=== PATIENT | male | born 1955 | race Caucasian/White ===

== ENCOUNTER → 2021-09-05 | Day surgery (SDC) | payer MEDICARE, OTHER ==
[~2021-09-05] VITALS: Ht 180.3 cm; Wt 115.0 kg
[~2021-09-05] MED LIST: MIDAZolam 1mg/ml 10ml vial IV ONE; fentaNYL/PF 50MCG/1 ML 2ML syringe IV ONE; normal saline 1000ml 1,000 ML IV SCH
[2021-09-05 11:30] VITALS: BP 108/67
--- NOTE | 2021-09-05 11:46 | NUR ---
Pt is recorded in NSR by EKG. aware, procedure cancelled.
== END | disposition home or self-care (01) ==
LOC: SSTAY O 10:57
PROVIDERS: ATTEND Internal Medicine Interventional Cardiology
DX: I48.91 Unspecified atrial fibrillation (principal); Z53.8 Procedure and treatment not carried out for other reasons
CPT/HCPCS: 93005; A4620; J7030

== ENCOUNTER 2024-07-01 10:02 | Day surgery (SDC) | payer MEDICARE, MEDICAID ==
[2024-06-22 13:14] LABS: BASOPHILS % (AUTO) 0.3 % (0-1); EOSINOPHILS # (AUTO) 0.1 X10'3 (0-0.9); LYMPHOCYTES # (AUTO) 0.7 X10'3 (1.1-4.8); LYMPHOCYTES % (AUTO) 11.6 % (21-51); MEAN CORPUSCULAR HEMOGLOBIN 31.5 PG (27.0-31.0); MEAN CORPUSCULAR HGB CONC 34.3 g/dL (33.0-36.5); MEAN CORPUSCULAR VOLUME 91.7 FL (78-98); MEAN PLATELET VOLUME 7.5 FL (7.4-10.4); MONOCYTES # (AUTO) 0.5 X10'3 (0-0.9); MONOCYTES % (AUTO) 7.7 % (2-12); NEUTROPHILS # (AUTO) 4.6 X10'3 (1.8-7.7); NEUTROPHILS % (AUTO) 78.4 % (42-75); PRE OP HEMATOCRIT 48.6 % (42.0-52.0); PRE OP HEMOGLOBIN 16.7 g/dL (14.0-17.9); PRE OP PLATELET COUNT 166 X10'3 (140-440); PRE OP WHITE BLOOD COUNT 5.9 10'3 (4.8-10.8); RED CELL DISTRIBUTION WIDTH 13.2 % (11.5-14.5)
[2024-06-22 13:27] LABS: ALBUMIN 4.1 G/DL (3.4-5.0); ALBUMIN/GLOBULIN RATIO 1.4 (1.1-1.5); ALKALINE PHOSPHATASE 71 IU/L (46-116); BLOOD UREA NITROGEN 19 MG/DL (7-18); BUN/CREATININE RATIO 17.9 (10.0-20.0); CHLORIDE 102 MMOL/L (99-107); CREATININE 1.06 MG/DL (0.60-1.10); PRE OP ALT 29 U/L (30-65); PRE OP ANION GAP 9 (8-16); PRE OP AST 19 U/L (10-37); PRE OP BILIRUB, TOTAL 0.9 MG/DL (0.0-1.0); PRE OP GLUCOSE 96 MG/DL (70-104); PRE OP SODIUM 139 MMOL/L (135-145); TOTAL CARBON DIOXIDE 28.2 MMOL/L (24-32); eGFR 70 ML/MIN
[~2024-07-01] VITALS: Ht 180.3 cm; Wt 106.3 kg
[2024-07-01] VITALS (10 sets, daily range): BP systolic 112–146; BP diastolic 71–95; PULSE 43–58; RESP 15–18; TEMP 97.4; O2SAT 65–98
[2024-07-01] MEDS: DOCUMENT DATE & TIME OF BETA-BLOCKER PO ONE (06:30)
[~2024-07-01 10:02] MED LIST changes: +APIX5TAB3 PO; +COLC0.6T72 PO; +FEBU40TA6 PO; +LEVO200T8 PO; -MIDAZolam 1mg/ml 10ml vial IV ONE; +SACU1TAB PO; +SOTA80TA PO; +bacitracin 15gm ointment TP ONE; +ceFAZolin 1000mg inj ONE; -fentaNYL/PF 50MCG/1 ML 2ML syringe IV ONE; -normal saline 1000ml 1,000 ML IV SCH
[2024-07-01] MEDS: ringers solution, lacted 1,000 ML IV SCH (11:10)
[2024-07-01] MEDS: famotidine 20mg tablet PO ONE (11:10)
[2024-07-01] MEDS: VANCOMYCIN/WATER FOR INJ (PEG) 1.5GM/300 ML IVPB IV ONE (11:10)
[2024-07-01] MEDS: ceFAZolin 2gm in dextrose, iso 50 ML IV ONE (11:11)
[2024-07-01] MEDS ORDERED: sevoflurane 250ml liquid IH ONE (11:37)
[2024-07-01] MEDS ORDERED: fentaNYL/PF 50MCG/1 ML 2ML syringe ONE (11:45)
[2024-07-01] MEDS ORDERED: midazolam 1 mg/ML 2ml injection ONE (11:46)
[2024-07-01] MEDS ORDERED: ePHEDrine 50MG/ML INJ. ONE (12:06)
[2024-07-01] MEDS ORDERED: propofol inj 20 ML IV ONE (12:07)
[2024-07-01 12:34] LABS: PRE OP PARTIAL THROMB. TIME 24 SECONDS (22-32); PROTHROMBIN TIME 10.7 SECONDS (9.0-12.0)
[2024-07-01] MEDS ORDERED: dexamethasone sod phosphate 4mg/ml inj. ONE (12:52)
[2024-07-01] MEDS ORDERED: acetaminophen 1,000mg/100ml IV 100 ML IV ONE (12:53)
[2024-07-01] MEDS ORDERED: hydrALAZINE 20mg/ml inj. IV PRN (13:10)
[2024-07-01] MEDS ORDERED: ringers solution, lacted 1,000 ML IV SCH (13:10)
[2024-07-01] MEDS ORDERED: ondansetron/PF 4mg/2ml inj IV PRN (13:10)
[2024-07-01] MEDS ORDERED: morphine 4 MG/ML inj SYRINge IV PRN (13:10)
[2024-07-01] MEDS ORDERED: morphine 2 MG/ML inj. syringe IV PRN (13:10)
[2024-07-01] MEDS ORDERED: HYDROmorphone/PF 0.2 MG/ML SYRINGE IV PRN (13:10)
[2024-07-01] MEDS: HYDROmorphone/PF 0.2 MG/ML SYRINGE IV PRN (13:39)
--- NOTE | 2024-07-01 13:52 | OPERATIVE REPORT ---
DATE OF SURGERY: 07/01/2024 DICTATING PHYSICIAN: Jamaal Street MD PREOPERATIVE DIAGNOSIS: Retained painful hardware, cannulated screws, right hip. POSTOPERATIVE DIAGNOSIS: Retained painful hardware, cannulated screws, right hip. PROCEDURE PERFORMED: Hardware removal, right hip. SURGEON: Jamaal Street MD ANESTHESIA: General anesthesia, Dr. Vizcarra. COMPLICATIONS: There were no complications. BLOOD LOSS: Less than 100 mL. INDICATIONS AND TECHNIQUE: This is a 69-year-old male, who is status post multiple opinions for a femoral neck fracture that is healed with some slight compression leaving prominent screw heads towards the lateral aspect of his hip. These are painful and he wishes to have them removed. He understood the indications, risks, benefits, complications and potential limitations of the surgery. I obtained informed consent and signed his right hip. He was given prophylactic antibiotics, taken to the operating room and given general anesthetic after being placed in a supine position on the OR table. DESCRIPTION OF PROCEDURE: The right hip was now prepped and draped in the usual sterile orthopedic fashion. A surgical timeout was taken per protocol and the case was begun. Previous lateral incision was incised and extended proximally for an incision that was approximately 5 inches in length. IT band was incised and then dissection was then carried to the screw heads and visualized under fluoroscopic exam. A guide pin was placed into the cannulated portion of the screw head, which was now backed out with power without complications. There were 3 pins in number confirmed the fact that these were all removed with C-arm x-rays. The area was then irrigated with aseptic irrigant solution and hemostasis was achieved with electrocautery. Closure of the IT band was accomplished with interrupted sutures of #1 Vicryl. Subcuticular closure was accomplished with 2-0 Vicryl and the skin was closed with skin julio and sealed with Dermabond skin glue. An island dressing was applied. The patient was now extubated, transferred to the [facility] recovery room in stable condition. There were no apparent preoperative complications. Needle and sponge counts reported to be correct. Jamaal Street MD TID: [id number] RECEIPT: [id number] RC/NILAY
== END 2024-07-01 14:26 | disposition home or self-care (01) ==
LOC: PAS 10:02
PROVIDERS: ATTEND Orthopaedic Surgery
DX: T84.84XA Pain due to internal orthopedic prosthetic devices, implants and grafts, initial encounter (principal); I48.91 Unspecified atrial fibrillation; M10.9 Gout, unspecified; I42.9 Cardiomyopathy, unspecified; Z88.6 Allergy status to analgesic agent; Z88.8 Allergy status to other drugs, medicaments and biological substances; Z79.899 Other long term (current) drug therapy; Z98.890 Other specified postprocedural states
CPT/HCPCS: 20680; 36415; 73502; 80053; 82948; 85025; 85610; 85730; A4215; A4618; A7000; J0131; J0690; J1100; J1171; J2250; J2704; J3010; J3372; J3490; J7030; J7120; Z7506; Z7508; Z7512; Z7610; 76000